=== PATIENT | female | born 1960 | race African-American/Black ===

== ENCOUNTER 2021-09-30 12:57 | Emergency (ER) | payer OTHER ==
[2021-09-30 13:27] VITALS: BP 131/64; PULSE 79; TEMP 98; BMI 36.6
== END 2021-09-30 14:08 | disposition home or self-care (01) ==
LOC: JERFT 12:57
DX: L03.313 Cellulitis of chest wall (principal)
CPT/HCPCS: 99283-25

== ENCOUNTER 2022-03-22 12:10 | Emergency (ER) | payer OTHER ==
[2022-03-22 12:24] VITALS: BP 132/76; PULSE 92; TEMP 98.5; BMI 35.2
[2022-03-22] MEDS ORDERED: ACETAMINOPHEN 500 MG TABLET (FP) ONE (13:16)
== END 2022-03-22 13:59 | disposition home or self-care (01) ==
LOC: JERFT 12:10
DX: L02.31 Cutaneous abscess of buttock (principal)
CPT/HCPCS: 99283-25

== ENCOUNTER 2023-11-28 07:11 | Day surgery (SDC) | payer OTHER ==
[2023-11-19 13:05] VITALS: BMI 34.3
[2023-11-28] MEDS ORDERED: ACETAMINOPHEN INJECTION 100 ML IVPB ONE (09:25)
[2023-11-28] MEDS ORDERED: BUPIVACAINE LIPOSOME/PF (EXPAREL) 266 MG/20 ML VIAL ONE (09:25)
[2023-11-28] MEDS ORDERED: MIDAZOLAM HCL 2 MG/2 ML SINGLE DOSE VIAL ONE ×2 (09:25→10:00)
[2023-11-28] MEDS ORDERED: BUPIVACAINE HCL/PF 0.5% (5 MG/ML) 30 ML VIAL IJ ONE (09:25)
[2023-11-28] MEDS ORDERED: BUPIVACAINE HCL/PF 0.5% (5MG/ML) 10 ML VIAL ONE (09:43)
[2023-11-28] MEDS ORDERED: PROPOFOL 20 ML ONE ×3 (10:07→11:12)
[2023-11-28] MEDS ORDERED: ceFAZolin SODIUM 1 GM VIAL ONE ×2 (10:11)
[2023-11-28] MEDS ORDERED: TRANEXAMIC ACID 1000 MG/10 ML VIAL ONE ×2 (10:17→11:03)
[2023-11-28] MEDS ORDERED: ONDANSETRON 4 MG/2 ML VIAL ONE (10:53)
[2023-11-28] MEDS ORDERED: KETOROLAC TROMETHAMINE 30 MG/1 ML VIAL ONE (10:53)
[2023-11-28] MEDS ORDERED: DEXAMETHASONE SOD PHOSPHATE 4 MG/1 ML VIAL ONE (10:53)
[2023-11-28] MEDS ORDERED: MAG HYDROX/AL HYDROX/SIMETH 30 ML UNIT-DOSE CUP PO PRN (12:28)
[2023-11-28] MEDS ORDERED: MAGNESIUM HYDROX 2400MG/30ML ORAL SUSPENSION 30 ML CUP PO PRN (12:28)
[2023-11-28] MEDS ORDERED: ACETAMINOPHEN 325 MG TABLET (FP) PO PRN (12:30)
[2023-11-28] MEDS ORDERED: ONDANSETRON 4 MG/2 ML VIAL IVPUSH PRN ×2 (12:30→18:31)
[2023-11-28] MEDS: ACETAMINOPHEN 500 MG TABLET (FP) PO SCH (16:06)
[2023-11-28] MEDS: oxyCODONE HCL 5 MG TABLET PO PRN (16:30)
[2023-11-28] MEDS: CEFAZOLIN 2 GM in DEXTROSE 5%-WATER - 100 ML IVPB ONE (18:13)
[2023-11-28] MEDS: TRANEXAMIC ACID 1000 MG/10 ML VIAL IVPUSH ONE (18:13)
[2023-11-28] MEDS: LACTATED RINGERS SOLUTION 1,000 ML IV SCH (18:27)
[2023-11-28] MEDS: CEFAZOLIN SODIUM 2 GM in DEXTROSE 5%-WATER 100 ML IVPB SCH (18:28)
[2023-11-28] MEDS ORDERED: TRANEXAMIC ACID 1000 MG/10 ML VIAL IVPUSH ONE ×2 (19:00)
[2023-11-28] MEDS: TRANEXAMIC ACID - 1,000 MG in SODIUM CHLORIDE 50 ML IVPB ONE (19:05)
[2023-11-28] MEDS: SENNOSIDES/DOCUSATE COMBO (SENNA PLUS) TABLET (UD) PO SCH (21:17)
[2023-11-28] MEDS: DEXAMETHASONE 4 MG TABLET (FP) PO SCH (21:18)
[2023-11-28] MEDS: ASPIRIN 81 MG CHEWABLE TABLETS PO SCH (21:18)
[2023-11-28] MEDS: FAMOTIDINE 20 MG TABLET PO SCH (21:18)
[2023-11-29] MEDS: LEVOTHYROXINE NA 75 MCG TABLET (FP) PO SCH (06:20)
[2023-11-29] MEDS: oxyCODONE HCL 5 MG TABLET PO PRN (08:45)
[2023-11-29] MEDS: TRANEXAMIC ACID - 1,000 MG in SODIUM CHLORIDE 50 ML IVPB ONE (08:45)
[2023-11-29] MEDS ORDERED: TRANEXAMIC ACID 1000 MG/10 ML VIAL IVPUSH ONE (09:00)
[2023-11-29] MEDS: CELECOXIB 200 MG CAPSULE PO SCH (10:00)
[2023-11-29] MEDS: MULTIVITAMINS (DAILY MVI) TABLET (FP) PO SCH (10:00)
[2023-11-29 15:09] VITALS: BP 128/77; PULSE 72; RESP 17; TEMP 97.9
== END 2023-11-29 15:00 | disposition home health service (06) ==
LOC: FASUSAT 07:11 → FM/S 13:31 → FASUSAT 11-29 15:00
PROVIDERS: ATTEND Orthopaedic Surgery
PROC: 0SRC0J9 Replacement of Right Knee Joint with Synthetic Substitute, Cemented, Open Approach (ICD-10-PCS; principal; 2023-11-28 10:33)
DX: M17.11 Unilateral primary osteoarthritis, right knee (principal)
CPT/HCPCS: 27447; C1776; 73560-TC-RT-FY; 94760; 97010-GP; 97116-GP; 97162-GP; C1889; J0131

== ENCOUNTER → 2024-12-04 | Day surgery (SDC) | payer OTHER | END | disposition home or self-care (01) | LOC: JRADIR 09:21 | PROVIDERS: ATTEND Internal Medicine Endocrinology, Diabetes & Metabolism | PROC: 0G9H3ZX Drainage of Right Thyroid Gland Lobe, Percutaneous Approach, Diagnostic (ICD-10-PCS; principal; 2024-12-04) | DX: E04.1 Nontoxic single thyroid nodule (principal); E06.3 Autoimmune thyroiditis | CPT/HCPCS: 10005; 76942; 88173; 88305-TC ==